=== PATIENT | female | born 1975 | race Caucasian/White ===

== ENCOUNTER 2021-06-13 14:58 | Emergency (ER) | payer SELFPAY ==
[~2021-06-13] VITALS: Ht 172.7 cm; Wt 89.0 kg
[2021-06-13 15:00] VITALS: BP 123/79
== END 2021-06-13 17:10 | disposition left against medical advice (07) ==
LOC: ER 14:58
DX: M25.511 Pain in right shoulder (principal); Z53.21 Procedure and treatment not carried out due to patient leaving prior to being seen by health care provider
CPT/HCPCS: 93005

== ENCOUNTER 2025-06-22 16:39 | Emergency (ER) | payer MEDICAID ==
[~2025-06-22] VITALS: Ht 170.2 cm; Wt 82.0 kg
[2025-06-22 16:45] VITALS: O2SAT 99
[2025-06-22] MEDS: CYCLOBENZAPRINE 10MG TABLET PO ONE (18:41)
[2025-06-22] MEDS: LIDOCAINE 5% PATCH TOP STA (18:41)
[2025-06-22 19:49] LABS: BASOPHILS % 0.7 % (0.0-2.0); EOSINOPHILS % 3.0 % (0.0-5.0); HEMATOCRIT. 39.6 % (36.0-48.0); HEMOGLOBIN. 13.1 g/dL (12.0-16.0); LYMPHOCYTES % 43.9 % (20.0-50.0); MEAN PLATELET VOLUME 8.1 fl (7.4-10.4); MONOCYTES % 6.3 % (2.0-8.0); NEUTROPHILS % 46.1 % (40.0-76.0); PLATELET 269 x1000/uL (130-400); RED BLOOD CELL COUNT 4.50 mill/uL (4.2-5.4); RED CELL DISTRIBUTION WIDTH 13.7 % (11.6-14.6)
[2025-06-22 20:00] LABS: INR 0.9
[2025-06-22 20:05] LABS: CREATININE 0.8 mg/dL (0.6-1.0); UREA NITROGEN BLOOD 17 mg/dL (9-23)
[2025-06-22 20:06] LABS: C REACTIVE PROTEIN HIGH SENS 2.59 mg/l (<1.00)
[2025-06-22 20:07] LABS: ASPARTATE AMINOTRANSFERASE 22 IU/L (<34); BILIRUBIN DIRECT 0.1 mg/dL (<=3.0); BILIRUBIN TOTAL 0.4 mg/dL (0.1-1.0); PROTEIN TOTAL 7.9 g/dL (6.0-8.3)
[2025-06-22 20:27] LABS: ERYTHROCYTE SEDIMENTATION RATE 14 mm/hr (0-30)
[2025-06-22] MEDS ORDERED: CARB100C9 MT (21:07)
[2025-06-22] MEDS ORDERED: AMOX1TAB16 MT (21:07)
[2025-06-22 21:20] VITALS: BP 135/79; PULSE 85; RESP 14; TEMP 36.9; O2SAT 98
== END 2025-06-22 21:21 | disposition home or self-care (01) ==
LOC: ER 16:39
DX: K04.7 Periapical abscess without sinus (principal); G50.0 Trigeminal neuralgia; E11.9 Type 2 diabetes mellitus without complications; Z98.890 Other specified postprocedural states
CPT/HCPCS: 99285; 70496; 80076; 80048; 86141; 85025; 85610; 85651; 36415; 70498; 70480; 70450; Q9967